=== PATIENT | male | born 1965 | race Caucasian/White ===

== ENCOUNTER 2016-06-07 04:47 | Emergency (ER) | payer SELFPAY ==
[~2016-06-07] VITALS: Ht 177.8 cm; Wt 90.0 kg
[~2016-06-07 04:47] MED LIST: ACET325T45 PO; HYDR-3498 PO; IBUP800T25 PO; TAMS-14 PO
[2016-06-07 04:48] VITALS: Ht 177.8 cm; Wt 90.0 kg
[2016-06-07] MEDS ORDERED: LORA10TA3 PO (06:39)
[2016-06-07] MEDS ORDERED: FLUT16SP17 NASAL (06:39)
[2016-06-07] MEDS ORDERED: PETR18JE2 TP (06:41)
[2016-06-07] MEDS ORDERED: CARB15DR48 BOTH EARS (06:41)
--- NOTE | 2016-06-07 10:57 | ERD ---
ER Documentation Chief Complaint Date/Time DATE: 06/07/16 TIME: 10:52 Chief Complaint nosebleeding- controlled HPI This is a 51-year-old male presents to the ER with frequent nosebleeds over the last several weeks. Patient last had a nosebleed 24 hours ago. He denies any trauma Tylenol as he denies any pain. Patient tried putting hydrogen peroxide his nose however this did not work. Patient does suffer from seasonal allergies. He has been sneezing more. Patient does not have any fevers or chills. He denies any gum bleeding or excessive bruising. ROS 12 point review of systems was done, all negative except per HPI. Medications Home Meds Active Scripts Petrolatum,White (VASELINE) 18 Ml Jelly.ml., 18 ML TP BID for 3 Days Prov:GIBSON BRAY 06/07/16 Carbamide Peroxide* (Debrox*) 6.5% - 15 Ml Drops, 10 DROP BOTH EARS BID for 3 Days, BOTTLE Prov:GIBSON BRAY 06/07/16 Loratadine* (Loratadine*) 10 Mg Tablet, 10 MG PO DAILY, #30 TAB Prov:GIBSON BRAY 06/07/16 Fluticasone Propionate* (Fluticasone Propionate* Nasal) 50 Mcg/[place] - 16 Gm [place].susp, 1 SPRAY NASAL BID, #1 BOTTLE TO EACH NOSTRIL Prov:GIBSON BRAY 06/07/16 Hydrocodone Bit-Acetaminophen* ([place]*) 5-325 Mg Tab, 1 TAB PO Q6 Y for PAIN, # 10 TAB Prov:JESI CHANDLER PA-C 09/14/15 Ibuprofen* (Ibuprofen*) 800 Mg Tab, 800 MG PO TID, #20 TAB Prov:YOGI WARE DO 09/13/15 Tamsulosin Hcl* (Flomax*) 0.4 Mg Cap.er.24h, 0.4 MG PO DAILY, #30 CAP Prov:YOGI WARE DO 09/13/15 Acetaminophen* (Acetaminophen*) 325 Mg Tablet, 325 MG PO Q4H Y for PAIN AND OR ELEVATED TEMP, #30 TAB Prov:YOGI WARE DO 09/13/15 Reported Medications [None] No Conflict Check 06/30/09 Allergies Allergies: Coded Allergies: Penicillins (Verified Allergy, Unknown, GI UPSET, 09/13/15) PMhx/Soc Medical and Surgical Hx: pt denies Surgical Hx History of Surgery: No Anesthesia Reaction: No Hx Neurological Disorder: No Hx Respiratory Disorders: Yes (PNA) Hx Cardiac Disorders: Yes (PALPITATIONS 08/05) Hx Psychiatric Problems: No Hx Miscellaneous Medical Probl: Yes (KIDNEY STONES) Hx Alcohol Use: No Hx Substance Use: No Hx Tobacco Use: No Smoking Status: Never smoker Physical Exam Vitals Vital Signs Date Time Temp Pulse Resp B/P Pulse Ox O2 Delivery O2 Flow Rate FiO2 06/07/16 04:48 97.2 99 20 150/88 100 Physical Exam GENERAL: The patient is well developed and appropriate for usual state of health , in no apparent distress. HEENT: Atraumatic. Nasal nares are normal no evidence of septal hematoma CHEST: Clear to auscultation bilaterally. There are no rales, wheezes or rhonchi. HEART: Regular rate and rhythm. No murmurs, clicks, rubs or gallops. NEURO: alert and oriented ] Procedures/MDM This is a 51-year-old male presents to the ER with frequent nosebleeds. At this time there is no evidence for platelet disorder patient is extremely well- appearing he does not have a history of easy bruising or gum bleeding. At this is likely secondary to dry nasal naris. Patient will be sent home with Vaseline. Patient will also be given Flonase and loratadine for his seasonal allergies. Patient needs to follow-up with his primary care doctor within 1-2 days return to ER sooner if symptoms worsen. My medical decision making shared with the patient he understands and agrees with plan Departure Diagnosis: Primary Impression: Epistaxis Condition: Stable Patient Instructions: Epistaxis (Adult) Additional Instructions: Call your primary care doctor TOMORROW for an appointment during the next 1-2 days.See the doctor sooner or return here if your condition worsens before your appointment time. GIBSON BRAY Jun 07, 2016 10:57
== END 2016-06-07 07:34 | disposition home or self-care (01) ==
LOC: FTE 04:47
DX: R04.0 Epistaxis (principal)
CPT/HCPCS: 99283